=== PATIENT | female | born 1970 | race Caucasian/White ===

== ENCOUNTER 2017-11-03 07:38 | Outpatient (CLI) | payer BC | END 2017-11-03 07:39 | disposition home or self-care (01) | LOC: BICMRI 07:38 | PROVIDERS: ATTEND Allergy & Immunology | DX: M45.6 Ankylosing spondylitis lumbar region (principal); M47.896 Other spondylosis, lumbar region | CPT/HCPCS: 72148 ==

== ENCOUNTER 2017-11-21 09:55 | Outpatient (CLI) | payer BC ==
[2017-11-21] MEDS ORDERED: Iopamidol 370 76% 100 ML VIAL ONE (11:54)
== END 2017-11-21 09:56 | disposition home or self-care (01) ==
LOC: BICCT 09:55
PROVIDERS: ATTEND Family Medicine
DX: N28.89 Other specified disorders of kidney and ureter (principal)
CPT/HCPCS: 74178

== ENCOUNTER 2024-06-18 08:56 | Emergency (ER) | payer BC ==
[2024-06-18] MEDS ORDERED: predniSONE 20 MG TAB ONE (09:59)
[2024-06-18] MEDS ORDERED: Ketorolac Tromethamine 30 MG (1 mL) VIAL ONE ×2 (09:59→11:02)
[2024-06-18] MEDS ORDERED: Methocarbamol 500 MG TAB ONE ×2 (09:59→11:01)
[2024-06-18] MEDS ORDERED: HYDROcodone/Acetaminophen 5/325 mg Tablet ONE (10:57)
== END 2024-06-18 11:06 | disposition home or self-care (01) ==
LOC: ERS 08:56
DX: M54.41 Lumbago with sciatica, right side (principal); I10 Essential (primary) hypertension; E11.9 Type 2 diabetes mellitus without complications; E78.5 Hyperlipidemia, unspecified; Z79.84 Long term (current) use of oral hypoglycemic drugs; Z79.899 Other long term (current) drug therapy
CPT/HCPCS: 96372; 96374; J1885; J7512

== ENCOUNTER 2024-06-19 11:02 | Outpatient (CLI) | payer BC | END 2024-06-19 11:03 | disposition home or self-care (01) | LOC: BICRAD 11:02 | PROVIDERS: ATTEND Family Medicine | DX: M16.11 Unilateral primary osteoarthritis, right hip (principal); M51.369 Other intervertebral disc degeneration, lumbar region without mention of lumbar back pain or lower extremity pain; M47.816 Spondylosis without myelopathy or radiculopathy, lumbar region | CPT/HCPCS: 72100 ==